=== PATIENT | male | born 1955 | race Caucasian/White ===

== ENCOUNTER 2019-08-23 12:06 | Observation (INO) | payer BC, MEDICARE ==
[2019-08-23] MEDS ORDERED: Iopamidol-370 76% 500 ML 1 ML ONE (12:31)
[2019-08-23 13:35] LABS: #Basophils 0.1 thou/uL (0.0-0.2); #Eosinphils 0.1 thou/uL (0.0-0.7); #Lymphocytes 1.6 thou/uL (1.20-3.40); #Monocytes 0.5 thou/uL (0.11-0.59); #Neutrophils 8.3 thou/uL (1.40-6.50); %Basophils 0.8 % (0.0-1.0); %Eosinophils 0.8 % (0.0-10.0); %Lymphocytes 14.8 % (21.0-51.0); %Monocytes 4.9 % (0.0-10.0); %Neutrophils 78.7 % (42.0-75.0); Hemoglobin 16.1 g/dL (14.0-18.0); Mean Corpuscular HGB CONC 34.3 g/dL (32.0-36.0); Mean Corpuscular Hemoglobin 32.5 pg (27.0-31.0); Mean Corpuscular Volume 94.9 fL (78.0-98.0); Mean Platelet Volume 8.3 fL (7.4-10.4); Platelet Count 178 thou/uL (130-400); RBC Distribution Width 12.8 % (11.5-14.5); Red Blood Cell (RBC) Count 4.95 mill/uL (4.70-6.10); White Blood Cell (WBC) Count 10.6 thou/uL (4.8-10.8)
[2019-08-23] MEDS ORDERED: Fentanyl 100 MCG/2 ML VIAL ONE (13:59)
[2019-08-23 14:04] LABS: ALT (SGPT) 18 U/L (8-55); AST (SGOT) 29 U/L (5-34); Albumin 4.3 g/dL (3.4-4.8); Alkaline Phosphatase 66 U/L (40-110); Anion Gap 13 mmol/L (10-20); BUN (Urea Nitrogen) 14 mg/dL (8.4-25.7); Bilirubin, Total 0.4 mg/dL (0.2-1.2); Calc. Creatinine Clearance 0 mL/min (70-130); Calcium 9.3 mg/dL (7.8-10.44); Carbon Dioxide 23 mmol/L (23-31); Chloride 103 mmol/L (98-107); Estimated GFR-MDRD 61; Globulin 3.1 g/dL (2.4-3.5); Glucose 112 mg/dL (80-115); Potassium 5.4 mmol/L (3.5-5.1); Protein, Total 7.4 g/dL (5.8-8.1); Sodium 134 mmol/L (136-145)
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
[2019-08-23] MEDS ORDERED: Ketorolac Tromethamine 30 MG/ML VIAL ONE (15:43)
[2019-08-23] MEDS ORDERED: hydrALAZINE 20 MG/ML VIAL SLOW IVP PRN (16:27)
[2019-08-23] MEDS ORDERED: Dextrose 50% Abboject 50 ML SYRINGE SLOW IVP PRN (16:27)
[2019-08-23] MEDS ORDERED: Morphine 2 MG/ML SYRINGE SLOW IVP PRN ×2 (16:27→18:54)
[2019-08-23] MEDS ORDERED: Ondansetron ODT 4 MG TAB PO PRN (16:27)
[2019-08-23] MEDS ORDERED: Dextrose 5% in Water 1,000 ML IV PRN (16:27)
[2019-08-23] MEDS ORDERED: Ondansetron PF 4 MG/2 ML Vial IVP PRN ×2 (16:27→16:33)
[2019-08-23] MEDS ORDERED: traMADol HCl 50 MG TAB PO PRN ×2 (16:33→18:54)
[2019-08-23] MEDS ORDERED: Cyclobenzaprine 10 MG TAB PO PRN (16:34)
[2019-08-23 17:34] LABS: Magnesium 1.8 mg/dL (1.6-2.6); Phosphorus 3.3 mg/dL (2.3-4.7)
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
[2019-08-23] MEDS: Acetaminophen 500 MG TAB PO SCH ×2 (19:37→22:19)
[2019-08-23 19:48] VITALS: BMI 27.0
[2019-08-23] MEDS: traMADol HCl 50 MG TAB PO SCH (21:07)
[2019-08-23] MEDS: Gabapentin 300 MG CAP PO SCH (22:19)
[2019-08-23] MEDS: Sodium Chloride 0.9% 1,000 ML IV SCH (22:19)
[2019-08-23] MEDS: Ibuprofen 600 MG TAB PO SCH (22:19)
[2019-08-23] MEDS: Sulfameth/Trimethoprim DS 800-160mg TAB PO SCH (22:19)
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
[2019-08-24 03:18] VITALS: TEMP 97.8
[2019-08-24] MEDS: Acetaminophen 500 MG TAB PO SCH ×2 (05:25→09:36)
[2019-08-24] MEDS: traMADol HCl 50 MG TAB PO SCH ×3 (05:25→11:19)
[2019-08-24] MEDS: Ibuprofen 600 MG TAB PO SCH (05:25)
[2019-08-24] MEDS: Sodium Chloride 0.9% 1,000 ML IV SCH (05:27)
[2019-08-24 05:46] LABS: Anion Gap 12 mmol/L (10-20); BUN (Urea Nitrogen) 19 mg/dL (8.4-25.7); Calc. Creatinine Clearance 78 mL/min (70-130); Calcium 8.7 mg/dL (7.8-10.44); Carbon Dioxide 22 mmol/L (23-31); Chloride 105 mmol/L (98-107); Estimated GFR-MDRD 57; Glucose 102 mg/dL (80-115); Sodium 135 mmol/L (136-145)
[2019-08-24 05:51] LABS: Phosphorus 4.7 mg/dL (2.3-4.7)
[2019-08-24] MEDS ORDERED: Levothyroxine Sodium 100 MCG TAB PO SCH (06:00)
[2019-08-24 08:20] VITALS: BP 139/87
--- NOTE | 2019-08-24 08:46 | RAD ---
Exam: Chest one view HISTORY:Rib fracture Comparison: None FINDINGS: Cardiac silhouette: Normal Aorta: Unremarkable Pulmonary vessels: Normal Costophrenic angles: No pleural effusion. Eventration of the right hemidiaphragm. LUNGS: No masses or consolidation. Pneumothorax: None Osseous abnormalities: Displaced left clavicle fracture. Numerous posterior left rib fractures involv ing the fourth, fifth, sixth, seventh ribs. IMPRESSION: Multiple osseous fractures involving the left hemithorax.
[2019-08-24] MEDS ORDERED: Polyethylene Glycol 3350 17 GM Packet PO SCH (09:00)
[2019-08-24] MEDS ORDERED: Prevnar 13-Val Conj/PF 0.5 ML SYRINGE IM ONE (09:00)
[2019-08-24] MEDS ORDERED: VASCEPA PO SCH (09:00)
[2019-08-24] MEDS ORDERED: FLU VACC TS2019-20(65YR UP)/PF 180 MCG/0.5 ML SYRINGE IM ONE (09:00)
[2019-08-24] MEDS: Sulfameth/Trimethoprim DS 800-160mg TAB PO SCH (09:36)
[2019-08-24] MEDS: Gabapentin 300 MG CAP PO SCH (09:36)
--- NOTE | 2019-08-24 10:02 | RAD ---
LEFT CLAVICLE 2 VIEWS: HISTORY: Left clavicular fracture. FINDINGS/IMPRESSION: There is a comminuted and displaced fracture involving the left clavicular shaft. POS: [facility]
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
[2019-08-24] MEDS ORDERED: Losartan 25 MG TAB PO SCH (21:00)
== END 2019-08-24 12:40 | disposition home or self-care (01) ==
LOC: ERS 12:06 → INTOOBSV 19:32 → SURG A 19:32
PROVIDERS: ADMIT Surgery; ATTEND Surgery
DX: S42.022A Displaced fracture of shaft of left clavicle, initial encounter for closed fracture (principal); S22.42XA Multiple fractures of ribs, left side, initial encounter for closed fracture; E87.5 Hyperkalemia; I10 Essential (primary) hypertension; V18.0XXA Pedal cycle driver injured in noncollision transport accident in nontraffic accident, initial encounter; Y93.55 Activity, bike riding; Y92.410 Unspecified street and highway as the place of occurrence of the external cause; Z79.899 Other long term (current) drug therapy; Z89.011 Acquired absence of right thumb; Z87.891 Personal history of nicotine dependence; Z85.850 Personal history of malignant neoplasm of thyroid
CPT/HCPCS: 36415; 71045; 71260; 74177; 80048; 80053; 83735; 84100; 85025; 90471; 90670; 94640; 96361; 96374; 96375; G0009; G0378; G0390; J1885; J3010; J7620; Q9967

== ENCOUNTER 2019-09-21 10:10 | Outpatient (CLI) | payer BC ==
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
== END 2019-09-21 10:11 | disposition home or self-care (01) ==
LOC: BICRAD 10:10
PROVIDERS: ATTEND Physician Assistant
DX: S22.32XA Fracture of one rib, left side, initial encounter for closed fracture (principal); S42.002A Fracture of unspecified part of left clavicle, initial encounter for closed fracture
CPT/HCPCS: 71046

== ENCOUNTER 2019-09-22 14:40 | Outpatient (CLI) | payer BC ==
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
== END 2019-09-22 14:41 | disposition home or self-care (01) ==
LOC: ULT 14:40
PROVIDERS: ATTEND Surgery
DX: S22.32XA Fracture of one rib, left side, initial encounter for closed fracture (principal); I82.A12 Acute embolism and thrombosis of left axillary vein; I82.612 Acute embolism and thrombosis of superficial veins of left upper extremity

== ENCOUNTER 2020-03-27 11:05 | Emergency (ER) | payer MEDICARE, BC ==
--- NOTE | 2020-03-27 12:21 | CT ---
CT THORACIC SPINE WITHOUT IV CONTRAST: HISTORY: Injury. Pain. FINDINGS: Mild compression fracture of T12 superior endplate region without retropulsion or significant malalig nment. No posterior element fracture. There is slight irregularity of the superior endplate of T11. T his could potentially represent a very subtle compression fracture as well. Essentially nondisplaced fracture through the left T11 rib, just adjacent to the vertebrocostal junction. Multiple healed left rib fractures. IMPRESSION: Acute appearing essentially nondisplaced compression fractures of T12 and probably T11 superior endpl ate region. Nondisplaced fracture involving the left 11th rib, near the costovertebral junction. Heal ed left rib fractures. POS: [facility]
== END 2020-03-27 14:45 | disposition home or self-care (01) ==
LOC: ERS 11:05
DX: S22.081A Stable burst fracture of T11-T12 vertebra, initial encounter for closed fracture (principal); S00.81XA Abrasion of other part of head, initial encounter; E78.5 Hyperlipidemia, unspecified; I10 Essential (primary) hypertension; F17.210 Nicotine dependence, cigarettes, uncomplicated; Z79.899 Other long term (current) drug therapy; V19.9XXA Pedal cyclist (driver) (passenger) injured in unspecified traffic accident, initial encounter
CPT/HCPCS: 72128

== ENCOUNTER 2020-04-19 08:18 | Outpatient (CLI) | payer MEDICARE, BC ==
--- NOTE | 2020-04-19 08:51 | BD ---
EXAM: DEXA bone density examination HISTORY: 64-year-old male with osteopenia COMPARISON: None FINDINGS: L1--bone mineral density 0.943 g/sq cm; T score -1.2 L2--bone mineral density 0.917 g/sq cm; T score -1.6 L3--bone mineral density 0.919 g/sq cm; T score -1.7 L4--bone mineral density 0.903 g/sq cm; T score -1.7 Total L1-L4--bone mineral density 0.920 g/sq cm; T score -1.6 Left femoral neck--bone mineral density0.722; T score -1.5 Total proximal left femur--bone mineral density 0.999; T score -0.2 IMPRESSION: Osteopenia.
== END 2020-04-19 08:19 | disposition home or self-care (01) ==
LOC: BICMAMMO 08:18
PROVIDERS: ATTEND Internal Medicine Endocrinology, Diabetes & Metabolism
DX: Z13.820 Encounter for screening for osteoporosis (principal); T14.8XXA Other injury of unspecified body region, initial encounter; M85.89 Other specified disorders of bone density and structure, multiple sites
CPT/HCPCS: 77080

== ENCOUNTER 2022-09-01 16:21 | Emergency (ER) | payer MEDICARE, BC | END 2022-09-01 17:54 | disposition home or self-care (01) | LOC: ERS 16:21 | DX: S42.031A Displaced fracture of lateral end of right clavicle, initial encounter for closed fracture (principal); E78.00 Pure hypercholesterolemia, unspecified; I10 Essential (primary) hypertension; F17.210 Nicotine dependence, cigarettes, uncomplicated; V18.0XXA Pedal cycle driver injured in noncollision transport accident in nontraffic accident, initial encounter ==

== ENCOUNTER 2023-01-12 18:56 | Emergency (ER) | payer MEDICARE, BC ==
[2023-01-12 19:31] LABS: #Basophils 0.1 thou/uL (0.0-0.2); #Eosinphils 0.1 thou/uL (0.0-0.7); #Lymphocytes 1.4 thou/uL (1.20-3.40); #Monocytes 0.7 thou/uL (0.11-0.59); #Neutrophils 10.2 thou/uL (1.40-6.50); %Basophils 0.5 % (0.0-1.0); %Eosinophils 0.4 % (0.0-10.0); %Lymphocytes 11.6 % (21.0-51.0); %Monocytes 5.2 % (0.0-10.0); %Neutrophils 82.2 % (42.0-75.0); Hemoglobin 16.1 g/dL (14.0-18.0); Mean Corpuscular HGB CONC 35.7 g/dL (32.0-36.0); Mean Corpuscular Hemoglobin 34.1 pg (27.0-31.0); Mean Corpuscular Volume 95.5 fl (78.0-98.0); Mean Platelet Volume 7.6 fL (7.4-10.4); Platelet Count 163 10x3/uL (130-400); RBC Distribution Width 11.9 % (11.5-14.5); Red Blood Cell (RBC) Count 4.73 mill/uL (4.70-6.10); White Blood Cell (WBC) Count 12.4 10x3/uL (4.8-10.8)
[2023-01-12 19:55] LABS: ALT (SGPT) 17 U/L (8-55); AST (SGOT) 17 U/L (5-34); Albumin 4.1 g/dL (3.4-4.8); Alkaline Phosphatase 63 U/L (40-110); Anion Gap 15 mmol/L (10-20); BUN (Urea Nitrogen) 16 mg/dL (8.4-25.7); Bilirubin, Total 0.6 mg/dL (0.2-1.2); Calc. Creatinine Clearance 0 mL/min (70-130); Carbon Dioxide 24 mmol/L (23-31); Chloride 103 mmol/L (98-107); Estimated GFR 65; Globulin 2.5 g/dL (2.4-3.5); Glucose 107 mg/dL (80-115); Potassium 4.7 mmol/L (3.5-5.1); Protein, Total 6.6 g/dL (5.8-8.1); Sodium 137 mmol/L (136-145)
[2023-01-12] MEDS ORDERED: Acetaminophen 500 MG TAB ONE (20:29)
[2023-01-12 23:10] LABS: Troponin I 0.011 ng/mL (< 0.028)
== END 2023-01-13 00:28 | disposition home or self-care (01) ==
LOC: ERS 18:56
DX: R07.89 Other chest pain (principal); D72.829 Elevated white blood cell count, unspecified; E78.00 Pure hypercholesterolemia, unspecified; I10 Essential (primary) hypertension; F17.210 Nicotine dependence, cigarettes, uncomplicated; Z79.899 Other long term (current) drug therapy
CPT/HCPCS: 36415; 71045; 80053; 84484; 85025; 93005